=== PATIENT | female | born 1950 | race Caucasian/White ===

== ENCOUNTER 2022-12-23 04:11 | Day surgery (SDC) | payer OTHER, BC ==
[2022-12-19 15:31] VITALS: BMI 21.1
[2022-12-23 06:29] VITALS: RESP 18
[2022-12-23] MEDS ORDERED: KETAMINE HCL 500 MG/10 ML VIAL ONE (06:54)
[2022-12-23] MEDS ORDERED: PROPOFOL 60 ML ONE ×2 (06:55→08:19)
[2022-12-23] MEDS ORDERED: ONDANSETRON 4 MG/2 ML VIAL IVPUSH PRN ×2 (07:39→11:17)
[2022-12-23] MEDS ORDERED: oxyCODONE HCL 5 MG TABLET PO PRN ×2 (07:39→11:17)
[2022-12-23] MEDS ORDERED: IBUPROFEN 800 MG/8 ML IJ IVPB PRN (07:39)
[2022-12-23] MEDS ORDERED: IBUPROFEN 600 MG TABLET (FP) PO PRN (07:39)
[2022-12-23] MEDS ORDERED: ELECTROLYTE-148 SOLN 1,000 ML IV SCH (07:45)
[2022-12-23] MEDS ORDERED: FENTANYL CITRATE/PF 50 MCG/ML VIAL IVPUSH PRN (08:46)
[2022-12-23 10:52] VITALS: BP 127/55; PULSE 76; TEMP 97.2
== END 2022-12-23 10:25 | disposition home or self-care (01) ==
LOC: JASU-SURG 04:11
PROVIDERS: ATTEND Obstetrics & Gynecology
PROC: 0UDB8ZX Extraction of Endometrium, Via Natural or Artificial Opening Endoscopic, Diagnostic (ICD-10-PCS; principal; 2022-12-23 07:30)
DX: N85.8 Other specified noninflammatory disorders of uterus (principal)
CPT/HCPCS: 88305-TC; 88341-TC; 88342-TC; 94760